=== PATIENT | male | born 2000 | race Caucasian/White ===

== ENCOUNTER 2021-07-10 12:37 | Emergency (ER) | payer SELFPAY ==
[~2021-07-10] VITALS: Ht 177.8 cm; Wt 148.0 kg
[2021-07-10 12:52] VITALS: BP 179/95
[2021-07-10] MEDS ORDERED: LIDOCAINE HCL 1% 20ML VIAL (Pyxis) INJ INFIL ONE (14:00)
[2021-07-10] MEDS ORDERED: CEPH500T MT (14:42)
[2021-07-10] MEDS ORDERED: BACITRACIN 15GM TUBE TOP ONE (14:45)
[2021-07-10] MEDS ORDERED: BACITRACIN ZINC OINT UDPKT TOP NR (15:30)
== END 2021-07-10 15:05 | disposition home or self-care (01) ==
LOC: ER 12:52
DX: L02.612 Cutaneous abscess of left foot (principal); S99.822A Other specified injuries of left foot, initial encounter; W22.8XXA Striking against or struck by other objects, initial encounter; Y93.01 Activity, walking, marching and hiking; Y92.9 Unspecified place or not applicable
CPT/HCPCS: 10060; 99284